=== PATIENT | male | born 1955 | race Caucasian/White ===

== ENCOUNTER 2018-09-14 17:56 | Emergency (ER) | payer MEDICAID ==
[~2018-09-14] VITALS: Ht 188 cm; Wt 97.5 kg
[2018-09-14] MEDS: CEphaleXIN 500 MG CAPSULE PO ONE (18:59)
[2018-09-14] MEDS ORDERED: CEphaleXIN 500 MG CAPSULE ONE (18:59)
--- NOTE | 2018-09-14 19:14 | NUR ---
Patient given written and verbal discharge instructions by [employer]. Patient verbalizes understanding of instructions. Patient is ambulatory with steady gait. Refuses offer of jail placement. Patient given list of available shelters in surrounding area. Homeless protocol followed.
== END 2018-09-14 19:14 | disposition home or self-care (01) ==
LOC: ER 17:59
DX: S80.922A Unspecified superficial injury of left lower leg, initial encounter (principal); X58.XXXA Exposure to other specified factors, initial encounter; Y93.89 Activity, other specified; Y92.89 Other specified places as the place of occurrence of the external cause; Y99.8 Other external cause status
CPT/HCPCS: A4663